=== PATIENT | male | born 1955 | race Caucasian/White ===

== ENCOUNTER 2017-12-24 10:54 | Emergency (ER) | payer BC ==
[~2017-12-24] VITALS: Ht 172.7 cm; Wt 80.0 kg
[2017-12-24 10:59] VITALS: BP 148/71; PULSE 63; RESP 16; TEMP 98.4; O2SAT 97
[2017-12-24] MEDS ORDERED: IBUP1TAB7 PO ×2 (11:41→11:43)
--- NOTE | 2017-12-24 11:42 | PD ---
HPI Chief Complaint: Laceration/Skin Injury Time Seen by Provider: 11:19 Travel History International Travel<30 days: No Contact w/Intl Traveler<30days: No Traveled to known affect area: No History of Present Illness HPI 62-year-old male presents to the emergency department with complaint of laceration to his right thumb from a table saw today. Not up-to-date on tetanus. Denies paresthesias, loss of sensation, decreased range of motion, decreased strength to the affected finger. Rates pain 5/10. Describes a throbbing. Has applied pressure. Has not taken any medications to alleviate his symptoms. Primary care provider is Dr. Velasco. No known allergies. Denies significant past medical history. Denies anticoagulant therapy. Has no other medical complaints. No other modifying factors or associated signs and symptoms. PFSH Past Medical History Medical History: Denies Significant Hx Diabetes: Yes Patient Takes Glucophage: No Past Surgical History Surgical History: No Previous Surgery Social History Alcohol Use: No Tobacco Use: No Substance Use: No Allergies-Medications (Allergen,Severity, Reaction): Coded Allergies: No Known Drug Allergies (Verified Allergy, Unknown, 12/24/17) Reported Meds & Prescriptions Reported Meds & Active Scripts Active Bactrim DS (Sulfamethoxazole-Trimethoprim) 800-160 Mg Tab 1 Tab PO BID 7 Days Ibuprofen 800 Mg Tab 800 Mg PO Q8H PRN Review of Systems Except as stated in HPI: all other systems reviewed are Neg Physical Exam Narrative GENERAL: Well-nourished, well-developed male patient, in no acute distress SKIN: Warm and dry. Palmar, distal aspect of right thumb pad with approximately 2 cm laceration; bleeding controlled; sensory intact; fingers pink and warm; no nailbed involvement; finger with good opposition; with full range of motion; full flexion and extension. HEAD: Atraumatic. Normocephalic. EYES: Pupils equal and round. No scleral icterus. No injection or drainage. ENT: Mucosa pink and moist. Airway patent. NECK: Trachea midline. CARDIOVASCULAR: Regular rate. RESPIRATORY: No accessory muscle use. GASTROINTESTINAL: Flat. MUSCULOSKELETAL: No obvious deformities. No clubbing. No cyanosis. No edema. NEUROLOGICAL: Awake and alert. Oriented 3. No obvious cranial nerve deficits. Motor grossly within normal limits. Normal speech. PSYCHIATRIC: Appropriate mood and affect; insight and judgment normal. Data Data Last Documented VS Vital Signs Date Time Temp Pulse Resp B/P (MAP) Pulse Ox O2 Delivery O2 Flow Rate FiO2 12/24/17 10:59 98.4 63 16 148/71 (96) 97 Orders Orders Tetanus/Diphtheria Tox Adult (Tetanus/Di (12/24/17 11:45) Finger ([id number]) (12/24/17 ) Lidocaine Pf 1% Inj (Xylocaine-Mpf 1% In (12/24/17 11:45) Ed Discharge Order (12/24/17 12:59) MDM Medical Decision Making Medical Screen Exam Complete: Yes Emergency Medical Condition: Yes Medical Record Reviewed: Yes Differential Diagnosis Cut, laceration, abrasion, contusion Narrative Course 62-year-old male with right thumb laceration from a table saw. Tetanus updated in the ER. See my procedure note for laceration repair. Right thumb x-ray ordered. I offered the patient pain medication and he declined. Ibuprofen, Bactrim prescribed for home. Instructed patient to return to the emergency department or follow-up with primary care provider in 7-10 days for suture removal. Instructed patient to follow up with primary care provider. Patient verbalizes understanding and agreement with treatment plan. Patient is medically cleared and stable for discharge. Discussed reasons to return to the emergency department. Patient agrees with treatment plan. The patients vital signs are stable and the patient is stable for outpatient follow-up and treatment. Patient discharged home, stable and in no acute distress. Procedures Procedure Narrative LACERATION LOCATION: Right thumb LENGTH: 2 centimeters NUMBER OF STITCHES/[place]: 6 simple interrupted suture REPAIR: The area of the laceration was prepped with Betadine and sterilely draped. The finger was digitally blocked using 1% lidocaine. The wound was copiously irrigated and explored without evidence of foreign body, tendon injury or neurovascular injury. The wound was closed using 4-0 Prolene. This was a single layer repair. A sterile dressing was applied. The patient was advised to keep the dressing clean and dry. Patient tolerated the procedure well. Diagnosis Primary Impression: Laceration of right thumb Qualified Codes: S61.011A - Laceration without foreign body of right thumb without damage to nail, initial encounter Referrals: Primary Care Physician Patient Instructions: Care For Your Stitches (ED), Finger Laceration (ED), General Instructions Additional Instructions: Keep area clean and dry Limit right thumb activity to decrease risk of sutures coming undone Ibuprofen or Tylenol as directed and as needed for pain and inflammation Ice pack to area as needed to decrease pain Return to the emergency department in 7-10 days for suture removal Follow up with primary care provider Return to the emergency department immediately with worsening of symptoms, particularly if reddened streaks up or down the affected extremity from the suture site, fever, numbness/tingling in the affected extremity, loss of sensation in the affected extremity, severe swelling of the affected Med/Other Pt SpecificInfo: Prescription(s) given Scripts Sulfamethoxazole-Trimethoprim (Bactrim DS) 800-160 Mg Tab 1 TAB PO BID for Infection for 7 Days, #14 TAB 0 Refills Prov: Cassandra Way 12/24/17 Ibuprofen (Ibuprofen) 800 Mg Tab 800 MG PO Q8H Y for PAIN SCALE 1 TO 10, #20 TAB 0 Refills Prov: Cassandra Way 12/24/17 Disposition: 01 DISCHARGE HOME Condition: Stable Cassandra Way Dec 24, 2017 11:42
[2017-12-24] MEDS ORDERED: LIDOCAINE HCL 1% PF 30 ML VIAL INFIL ONE (11:45)
[2017-12-24] MEDS ORDERED: TETANUS/DIPHTHERIA TOXOID ADULT 0.5 ML VIAL IM ONE (11:45)
--- NOTE | 2017-12-24 12:31 | RADRPT ---
EXAM DATE/TIME: 12/24/2017 11:58 [facility] COMPARISON: No previous studies available for comparison. INDICATIONS : Right first digit laceration with table saw MEDICAL HISTORY : None. SURGICAL HISTORY : None. ENCOUNTER: Initial ACUITY: 1 day PAIN SCORE: 7/10 LOCATION: Right Thumb FINDINGS: Examination of the first digit of the right hand demonstrates no evidence of fracture or dislocation. No radiopaque foreign bodies are seen. Irregular soft tissue disruption overlying the volar aspect of the distal phalanx. CONCLUSION: Soft tissue laceration involving the first digit distal phalanx. No evidence of osseous injury.. Elizabeth Grimaldo MD on December 24, 2017 at 12:28 Board Certified Radiologist. This report was verified electronically.
[2017-12-24] MEDS ORDERED: BACT800T5 PO (12:59)
== END 2017-12-24 13:56 | disposition home or self-care (01) ==
LOC: NEPD 10:54
DX: S61.011A Laceration without foreign body of right thumb without damage to nail, initial encounter (principal); E11.9 Type 2 diabetes mellitus without complications; Z23 Encounter for immunization; W31.2XXA Contact with powered woodworking and forming machines, initial encounter
CPT/HCPCS: 12001; 73140; 90471; 90714

== ENCOUNTER 2018-01-04 18:45 | Emergency (ER) | payer BC ==
[~2018-01-04] VITALS: Ht 172.7 cm; Wt 79.5 kg
[~2018-01-04 18:45] MED LIST: BACT800T5 PO; IBUP1TAB7 PO
[2018-01-04 19:21] VITALS: BP 129/74; PULSE 65; RESP 18; TEMP 98.3; O2SAT 98
[2018-01-04] MEDS ORDERED: BACT800T5 PO (19:48)
--- NOTE | 2018-01-04 19:52 | PD ---
HPI Chief Complaint: Laceration/Skin Injury Time Seen by Provider: 19:32 Travel History International Travel<30 days: No Contact w/Intl Traveler<30days: No Traveled to known affect area: No History of Present Illness HPI 62-year-old male presents emergency department for recheck and suture removal of a laceration to the right distal thumb from a table saw which occurred 10 days prior. Patient was treated with Bactrim DS 7 days. He has some pain and some small amount of drainage but otherwise it seems to be healing well. There are [address] He still has 3/10 pain, but it is improving. He has no known drug allergies PFSH Past Medical History Diabetes: Yes Patient Takes Glucophage: No Social History Alcohol Use: No Tobacco Use: No Substance Use: No Allergies-Medications (Allergen,Severity, Reaction): Coded Allergies: No Known Drug Allergies (Verified Allergy, Unknown, 12/24/17) Reported Meds & Prescriptions Reported Meds & Active Scripts Active Bactrim DS (Sulfamethoxazole-Trimethoprim) 800-160 Mg Tab 1 Tab PO BID Bactrim DS (Sulfamethoxazole-Trimethoprim) 800-160 Mg Tab 1 Tab PO BID 7 Days Ibuprofen 800 Mg Tab 800 Mg PO Q8H PRN Review of Systems Except as stated in HPI: all other systems reviewed are Neg General / Constitutional: No: Fever Eyes: No: Visual changes HENT: No: Headaches Cardiovascular: No: Chest Pain or Discomfort Respiratory: No: Shortness of Breath Gastrointestinal: No: Abdominal Pain Genitourinary: No: Dysuria Musculoskeletal: No: Pain Skin: Positive Lesions (See history of present illness per), No Rash Neurologic: No: Weakness Psychiatric: No: Depression Endocrine: No: Polydipsia Hematologic/Lymphatic: No: Easy Bruising Physical Exam Narrative GENERAL: Patient is in no acute distress. SKIN: Warm and dry. Normal color. Normal turgor. Patient has a fairly well- healing laceration to the distal left thumb, with [address]. No signs of significant cellulitis or wound dehiscence is noted. HEAD: Atraumatic. Normocephalic. EYES: Pupils equal and round. No scleral icterus. No injection or drainage. ENT: No nasal bleeding or discharge. Mucous membranes pink and moist. Pharynx is clear. Airways patent NECK: Trachea midline. Supple CARDIOVASCULAR: Regular rate and rhythm. RESPIRATORY: No accessory muscle use. MUSCULOSKELETAL: Extremities without clubbing, cyanosis, or edema. No obvious deformities. Full range of motion. Neurovascular exam is normal NEUROLOGICAL: Awake and alert. No obvious cranial nerve deficits. Motor grossly within normal limits. Five out of 5 muscle strength in the arms and legs. Normal speech. PSYCHIATRIC: Appropriate mood and affect; insight and judgment normal. Data Data Last Documented VS Vital Signs Date Time Temp Pulse Resp B/P (MAP) Pulse Ox O2 Delivery O2 Flow Rate FiO2 01/04/18 19:21 98.3 65 18 129/74 (92) 98 MDM Medical Decision Making Medical Screen Exam Complete: Yes Emergency Medical Condition: Yes Medical Record Reviewed: Yes Differential Diagnosis Right thumb laceration. Wound check. Suture removal Narrative Course Sutures removed without difficulty. Wound care as discussed. Patient kept on Bactrim DS twice daily 3 more days Patient to follow-up as needed. Diagnosis Primary Impression: Encounter for removal of sutures Patient Instructions: General Instructions Additional Instructions: Sutures removed without difficulty. Wound care as discussed. Patient kept on Bactrim DS twice daily 3 more days Patient to follow-up as needed. Med/Other Pt SpecificInfo: Wound Care Scripts Sulfamethoxazole-Trimethoprim (Bactrim DS) 800-160 Mg Tab 1 TAB PO BID for Infection, #6 TAB 0 Refills Prov: Harry Clark MD 01/04/18 Disposition: 01 DISCHARGE HOME Condition: Stable Lalito Escalante Jan 04, 2018 19:52
== END 2018-01-04 20:06 | disposition home or self-care (01) ==
LOC: NEPK 18:45
DX: S61.011D Laceration without foreign body of right thumb without damage to nail, subsequent encounter (principal); W31.2XXD Contact with powered woodworking and forming machines, subsequent encounter; Z48.02 Encounter for removal of sutures
CPT/HCPCS: 99281